=== PATIENT | male | born 1975 | race Caucasian/White ===

== ENCOUNTER 2016-12-14 22:22 | Emergency (ER) | payer BC ==
[2016-12-15] MEDS ORDERED: Diphtheria,Pertussis(Acell),Tetanus Vaccine 0.5 ML SDV IM ONE (00:14)
[2016-12-15 07:42] VITALS: BP 143/88
--- NOTE | 2016-12-18 13:14 | ER ---
DATE SEEN: 12/14/2016 TIME SEEN: The patient was seen at 2216 hours. HISTORY OF PRESENT ILLNESS: The patient presents because after 3 to 5 drinks of alcohol this evening, he fell backwards and lacerated his left scalp. He wants his scalp repaired. He fell back and hit his head on a cement floor. On more careful discussion, he had at least 9 beers this evening. 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 He had a fracture of the anterior cervical spine at C5-C6, C6-C7 level from wrestling. He has no loss of sensation in upper and lower extremities. He is oriented x3. He has a slightly distant look. He is a fair historian. He has moderate headache, and he has pain and discomfort in his occiput. He denies neck pain, paresis, or sensation changes in upper extremities. Denies irregular heartbeat, abdominal pain, chest wall discomfort, or pain in his upper and lower extremities. SOCIAL HISTORY: Nonsmoker, never smoked. He apparently rarely drinks, but he was at a green party get together this evening, and showed excessive exuberance in alcohol ingestion. He is single. MEDICATIONS: 1. Multivitamins. 2. Fish oil. 3. Flexeril p.r.n. 4. Antidepressants. 5. Citalopram 20 mg daily. IMMUNIZATIONS: He is not certain of his tetanus immunizations. REVIEW OF SYSTEMS: Negative except as noted above with previous history of neck injury while wrestling in college. PHYSICAL EXAMINATION: GENERAL: Head: Superior occipital soft tissue injury with 4-cm non-linear laceration. HEENT: TMs normal in appearance. Pharynx without abnormality. Gag is in place. Uvula midline. Tongue strength is normal. Speech appropriate. NECK: Soft collar has been placed in the neck. The neck was cleared by CT, and his neck range of motion is decreased, but there are no abnormalities noted. 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 LUNGS: Clear to auscultation without rales, rhonchi, or wheezes. HEART: S1, S2. No murmur. ABDOMEN: Soft. No guarding. No abdominal discomfort. He has increased abdominal girth. NEUROLOGICAL: He is a very muscular man. Deep tendon reflexes are normoactive in upper and lower extremities. Cranial nerves II through XII intact. Oriented x3. Gait appropriate, slightly unsteady. Romberg is negative. HOSPITAL COURSE: CT of the head, no evidence for abnormality. CT of the cervical spine, C5-C6, C6-C7 severe previous old anterior vertebral body fracture with significant osteophytic spurs, almost complete bridging of the C5- C6, C6-C7 anterior vertebral bodies. LABORATORY STUDIES: White count 10,200, PMNs 58, lymphocytes 33, monos 7, platelets 268,000, and hemoglobin 15.7, the latter is slightly elevated secondary to alcohol-induced dehydration. His complete metabolic panel is negative except for BUN trace high 21 and creatinine 0.8. Complete metabolic panel, BUN and creatinine ratio of 26 reflecting dehydration, diuresis from excessive alcohol intake. Urinalysis: Rare bacteria and urine. Drug screen is negative. Blood alcohol is 0.09. ASSESSMENT: 1. Alcohol intoxication. 2. Concussion. 3. Old C5-C6, C6-C7 vertebral anterior body spurring injury and deformities. 4. No evidence for cervical spine injury (fracture or subluxation). 5. Scalp laceration, 4 cm, occiput. PROCEDURE: The patient's scalp was prepped and cleansed in the sink with surgical scrub brush and then 8 sarah were placed. No evidence for cervical spine fracture or cranial or skull fracture. PLAN: The patient is to follow up in 5-7 days and have his sarah removed. Use bacitracin on daily basis. Gradually progressively increase activity as tolerated. New position statement of the [employer] in June 2016 relates that his activity does not need to be compromised. However, the patient has a weight restriction of lifting 25 pounds at work. /[id number] SEBASTIAN/JOSS PORTER
== END 2016-12-15 00:34 | disposition home or self-care (01) ==
LOC: FB.ED 22:22
DX: S06.0X0A Concussion without loss of consciousness, initial encounter (principal); S01.01XA Laceration without foreign body of scalp, initial encounter; W19.XXXA Unspecified fall, initial encounter; F10.129 Alcohol abuse with intoxication, unspecified; Z79.899 Other long term (current) drug therapy
CPT/HCPCS: 12002; 36415; 70450; 72125; 80053; 80305; 81001; 85025; 90471; 90715; 99283; G0480; 12001

== ENCOUNTER 2018-09-02 06:25 | Emergency (ER) | payer BC ==
[2018-09-02] MEDS ORDERED: Sodium Chloride 0.9% 1,000 ML IV ONE (07:17)
[2018-09-02] MEDS ORDERED: Ondansetron 4 MG/2 ML SDV IVPUSH ONE (07:17)
[2018-09-02] MEDS: Sodium Chloride 0.9% 10 ML Syringe FLUSH PRN ×2 (07:19→10:05)
--- NOTE | 2018-09-02 07:24 | EDM.PDOC ---
ED HPI GENERAL MEDICAL PROBLEM - General Chief Complaint: Flank Pain Stated Complaint: RT SIDE PAIN Time Seen by Provider: 09/02/18 07:14 Source of Information: Reports: Patient History Limitations: Reports: No Limitations - History of Present Illness INITIAL COMMENTS - FREE TEXT/NARRATIVE: 43-year-old male who noticed about noon yesterday that he had some right mid back aching type pain and that pain seemed to progressively worsen through the rest of the day. It was a pain that was worse with movement. About 3:30 this morning he awoke with a very sharp pain in his right upper quadrant, right flank and right mid back and it seemed to radiate from the front to the back. It was a 10/10 at this point. He did feel that felt worse with movement but he also felt that he couldn't find a comfortable position. He had no nausea or vomiting associated with this. No dysuria. No hematuria. No fevers or chills. No cough. No nasal congestion. No change in the pain with deep breath. He ate and drink normally yesterday. He presents here via private vehicle but his is at home and will come if need be to pick him up. The pain is currently a 7/ 10 at rest but with movement it goes back up to a 10/10. There are no other associated signs or symptoms. There are no other modifying factors. 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: Reports: Other (see below) (Nothing) Flank Pain Score (Numeric/FACES): 7 - Related Data Allergies Allergy/AdvReac Type Severity Reaction Status Date / Time hayfever Allergy Other Uncoded 09/02/18 07:31 Home Meds: Home Meds Citalopram [Citalopram HBr] 20 mg PO DAILY 12/14/16 [History] Cyclobenzaprine [Flexeril] 10 mg PO BEDTIME 12/14/16 [History] Cyclobenzaprine [Flexeril] 10 mg PO TID PRN #15 tab 09/02/18 [Rx] Gabapentin [Neurontin] 400 mg PO TID 09/02/18 [History] Hydrocodone/Acetaminophen [Blair 5-325 Tablet] 1 - 2 each PO Q6H PRN #20 tablet 09/02/18 [Rx] Past Medical History HEENT History: Reports: Impaired Vision Psychiatric History: Reports: Anxiety, Depression - Infectious Disease History Infectious Disease History: Reports: Chicken Pox - Past Surgical History Musculoskeletal Surgical History: Reports: Other (See Below) Other Musculoskeletal Surgeries/Procedures:: Surgery on bilateral elbows, scar tissue removal. Social & Family History - Tobacco Use Smoking Status *Q: Never Smoker - Caffeine Use Caffeine Use: Reports: Coffee - Alcohol Use Alcohol Use History: Yes Alcohol Use Frequency: Rarely - Living Situation & Occupation Living situation: Reports: (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[facility]) Occupation: Employed (He works for the [employer]) Social History Comment: He drove himself here but his will come pick him up. ED ROS GENERAL - Review of Systems Review Of Systems: See Below Constitutional: Reports: No Symptoms HEENT: Reports: No Symptoms Respiratory: Reports: No Symptoms Cardiovascular: Reports: No Symptoms Endocrine: Reports: No Symptoms GI/Abdominal: Reports: Abdominal Pain (Quadrant and right flank). Denies: Nausea, Vomiting : Reports: No Symptoms Musculoskeletal: Reports: Back Pain (Right mid back pain) Skin: Reports: No Symptoms Neurological: Reports: No Symptoms Hematologic/Lymphatic: Reports: No Symptoms Immunologic: Reports: No Symptoms ED EXAM, GI/ABD - Physical Exam Exam: See Below Exam Limited By: No Limitations General Appearance: Alert, WD/WN, Moderate Distress Eyes: Bilateral: Normal Appearance, EOMI Ears: Normal External Exam, Hearing Grossly Normal Throat/Mouth: Normal Inspection, Normal Oropharynx, Normal Voice, No Airway Compromise Head: Atraumatic, Normocephalic Neck: Normal Inspection, Supple, Non-Tender, Full Range of Motion Respiratory/Chest: No Respiratory Distress, Lungs Clear, Normal Breath Sounds, No Accessory Muscle Use, Chest Non-Tender Cardiovascular: Normal Peripheral Pulses, Regular Rate, Rhythm, No JVD GI/Abdominal Exam: Normal Bowel Sounds, Soft, No Mass, Tender (In right upper lateral quadrant) Back Exam: Normal Inspection. No: CVA Tenderness (R) Extremities: Normal Inspection, Normal Range of Motion, Non-Tender, Normal Capillary Refill, No Pedal Edema Neurological: Alert, Oriented, CN II-XII Intact, Normal Cognition, No Motor/ Sensory Deficits Skin Exam: Warm, Dry, Intact, Normal Color, No Rash EKG INTERPRETATION EKG Date: 09/02/18 Time: 06:42 Rhythm: NSR Rate (Beats/Min): 70 [place]: LAD-Left [place] Deviation P-Wave: Present QRS: Normal ST-T: Other (Poor R-wave progression) QT: Prolonged (Slightly) Comparison: NA - No Prior EKG EKG Interpretation Comments: Normal sinus rhythm with a rate of 70. There is a left axis. He has a slightly prolonged QTC and poor R-wave progression which is probably lead placement. Otherwise normal EKG. Course - Vital Signs Last Recorded V/S: Last Vital Signs Temp 36.5 C 09/02/18 10:08 Pulse 71 09/02/18 10:08 Resp 16 09/02/18 10:08 BP 157/91 H 09/02/18 10:08 Pulse Ox 96 09/02/18 10:08 - Orders/Labs/Meds Orders: Active Orders 24 hr Category Date Time Status Abdomen Ltd [US] Stat Exams 09/02/18 08:40 Taken Abdomen Pelvis wo Cont [CT] Stat Exams 09/02/18 08:37 Taken Sodium Chloride 0.9% [Saline Flush] Med 09/02/18 07:14 Active 10 ml FLUSH ASDIRECTED PRN Peripheral IV Insertion Adult [OM.PC] Routine Oth 09/02/18 07:14 Ordered EKG 12 Lead [EK] Routine Ther 09/02/18 06:42 Ordered Medication Orders Sodium Chloride (Saline Flush) 10 ml FLUSH ASDIRECTED PRN PRN Reason: Keep Vein Open Last Admin: 09/02/18 10:05 Dose: 10 ml Admin: 09/02/18 07:19 Dose: 10 ml Labs: Laboratory Tests 09/02/18 09/02/18 09/02/18 Range/Units 07:30 07:30 07:30 WBC 6.2 (4.5-12.0) X10-3/uL RBC 5.27 (4.30-5.75) x10(6)uL Hgb 15.4 (13.5-17.8) g/dL Hct 44.8 (30.0-51.3) % MCV 84.9 (80-96) fL MCH 29.2 (27.7-33.6) pg MCHC 34.4 (32.2-35.4) g/dL RDW 12.2 (11.5-15.5) % Plt Count 207 (125-369) X10(3)uL MPV 8.4 (7.4-10.4) fL Neut % (Auto) 65.5 (46-82) % Lymph % (Auto) 23.5 (13-37) % Adams % (Auto) 6.8 (4-12) % Eos % (Auto) 4 (1.0-5.0) % Baso % (Auto) 1 (0-2) % Neut # (Auto) 4.1 (1.6-8.3) # Lymph # (Auto) 1.5 (0.6-5.0) # Adams # (Auto) 0.4 (0.0-1.3) # Eos # (Auto) 0.2 (0.0-0.8) # Baso # (Auto) 0.0 (0.0-0.2) # Sodium 141 (135-145) mmol/L Potassium 4.5 (3.5-5.3) mmol/L Chloride 104 (100-110) mmol/L Carbon Dioxide 26 (21-32) mmol/L BUN 21 H (7-18) mg/dL Creatinine 0.9 (0.70-1.30) mg/dL Est Cr Clr Drug Dosing 118.37 mL/min Estimated GFR (MDRD) > 60 (>60) BUN/Creatinine Ratio 23.3 H (9-20) Glucose 105 (80-116) mg/dL Calcium 8.9 (8.6-10.2) mg/dL Total Bilirubin 0.6 (0.1-1.3) mg/dL AST 30 H (5-25) IU/L ALT 50 H (12-36) U/L Alkaline Phosphatase 56 (56-112) IU/L Troponin I < 0.017 L (<0.017-0.056) ng/mL Total Protein 6.9 (6.0-8.0) g/dL Albumin 3.9 (3.5-5.2) g/dL Globulin 3.0 g/dL Albumin/Globulin Ratio 1.3 Amylase 56 (25-115) U/L Urine Color (YELLOW) Urine Appearance (CLEAR) Urine pH (5.0-6.5) Ur Specific [place] (1.010-1.025) Urine Protein (NEGATIVE) mg/dL Urine Glucose (UA) (NORMAL) mg/dL Urine Ketones (NEGATIVE) mg/dL Urine Occult Blood (NEGATIVE) Urine Nitrite (NEGATIVE) Urine Bilirubin (NEGATIVE) Urine Urobilinogen (NEGATIVE) mg/dL Ur Leukocyte Esterase (NEGATIVE) Urine RBC (0-5) Urine WBC (0-5) Ur Squamous Epith Cells (NS,R,O) Urine Bacteria (NS) 09/02/18 Range/Units 08:19 WBC (4.5-12.0) X10-3/uL RBC (4.30-5.75) x10(6)uL Hgb (13.5-17.8) g/dL Hct (30.0-51.3) % MCV (80-96) fL MCH (27.7-33.6) pg MCHC (32.2-35.4) g/dL RDW (11.5-15.5) % Plt Count (125-369) X10(3)uL MPV (7.4-10.4) fL Neut % (Auto) (46-82) % Lymph % (Auto) (13-37) % [place] % (Auto) (4-12) % Eos % (Auto) (1.0-5.0) % Baso % (Auto) (0-2) % Neut # (Auto) (1.6-8.3) # Lymph # (Auto) (0.6-5.0) # Adams # (Auto) (0.0-1.3) # Eos # (Auto) (0.0-0.8) # Baso # (Auto) (0.0-0.2) # Sodium (135-145) mmol/L Potassium (3.5-5.3) mmol/L Chloride (100-110) mmol/L Carbon Dioxide (21-32) mmol/L BUN (7-18) mg/dL Creatinine (0.70-1.30) mg/dL Est Cr Clr Drug Dosing mL/min Estimated GFR (MDRD) (>60) BUN/Creatinine Ratio (9-20) Glucose (80-116) mg/dL Calcium (8.6-10.2) mg/dL Total Bilirubin (0.1-1.3) mg/dL AST (5-25) IU/L ALT (12-36) U/L Alkaline Phosphatase (56-112) IU/L Troponin I (<0.017-0.056) ng/mL Total Protein (6.0-8.0) g/dL Albumin (3.5-5.2) g/dL Globulin g/dL Albumin/Globulin Ratio Amylase (25-115) U/L Urine Color Yellow (YELLOW) Urine Appearance Clear (CLEAR) Urine pH 5.0 (5.0-6.5) Ur Specific [place] 1.025 (1.010-1.025) Urine Protein Negative (NEGATIVE) mg/dL Urine Glucose (UA) Normal (NORMAL) mg/dL Urine Ketones Negative (NEGATIVE) mg/dL Urine Occult Blood Negative (NEGATIVE) Urine Nitrite Negative (NEGATIVE) Urine Bilirubin Negative (NEGATIVE) Urine Urobilinogen Normal (NEGATIVE) mg/dL Ur Leukocyte Esterase Negative (NEGATIVE) Urine RBC 0-5 (0-5) Urine WBC 0-5 (0-5) Ur Squamous Epith Cells Occasional (NS,R,O) Urine Bacteria Occasional H (NS) Meds: Medications Generic Name Dose Route Start Last Admin Trade Name Roxann PRN Reason Stop Dose Admin Sodium Chloride 10 ml 09/02/18 07:14 09/02/18 10:05 Saline Flush FLUSH 10 ml ASDIRECTED PRN Administration Keep Vein Open Discontinued Medications Generic Name Dose Route Start Last Admin Trade Name Roxann PRN Reason Stop Dose Admin Hydromorphone HCl 1 mg 09/02/18 07:17 09/02/18 10:03 Dilaudid IVPUSH 1 mg Q5M PRN Administration Pain Sodium Chloride 1,000 mls @ 999 mls/hr 09/02/18 07:17 09/02/18 07:24 Normal Saline IV 09/02/18 08:17 999 mls/hr .BOLUS ONE Administration Ondansetron HCl 4 mg 09/02/18 07:17 09/02/18 07:27 Zofran IVPUSH 09/02/18 07:18 4 mg ONETIME ONE Administration - Radiology Interpretation Free Text/Narrative:: Right upper quadrant ultrasound showed no evidence of gallstones or any other acute abnormality per the radiologist CT scan of the abdomen and pelvis without IV contrast showed no acute abnormality per the radiologist. - Re-Assessments/Exams Free Text/Narrative Re-Assessment/Exam: 09/02/18 08:40: [facility] showed no acute abnormality. The patient had received Dilaudid 1 mg and his pain was down to a 5-6/10 but he did not want anything else this time. I ordered a CT scan of his abdomen and pelvis without IV contrast to rule out ureteral stone. 09/02/18 10:15: Patient's CT scan showed no acute abnormality. He has had 2 doses of the Dilaudid now with a good reduction in his pain. He appears comfortable. His blood pressure has been elevated throughout his emergency department stay. His laboratory tests are normal. The pain appears to be musculoskeletal in nature and potentially a problem in his back with muscle strain/spasm or possibly even a radiculopathy. I will give him 5 days off work and he will need to follow-up with primary doctor within that 5 days to have his blood pressure rechecked and also if he needs any further duty status. Departure - Departure Time of Disposition: 10:23 Disposition: Home, Self-Care 01 Condition: Good Clinical Impression: Mid back pain on right side, Acute right flank pain, Muscle spasm - Discharge Information Prescriptions: Cyclobenzaprine [Flexeril] 10 mg PO TID PRN #15 tab PRN Reason: Muscle spasm or pain Hydrocodone/Acetaminophen [Blair 5-325 Tablet] 1 - 2 each PO Q6H PRN #20 tablet PRN Reason: Moderate to severe pain Instructions: Back Exercises, Flank Pain, Adult, Back Injury Prevention Referrals: Nasreen Zhang NP [Primary Care Provider] - Forms: ED Department Discharge Additional Instructions: Your blood tests and urine test were reassuringly normal. The ultrasound of your gallbladder showed no problems. The CT scan of your abdomen and pelvis showed no evidence of kidney stone or any other problem. This appears to be due to either the muscles in your back and right flank or it could be a problem with a disc in your back as well. I have given you a note for no work for the next 5 days. You should avoid lifting, bending, pushing and pulling greater than 10 pounds for this period of time as well. You will need to follow-up with your primary doctor for any further duty status. Your blood pressure was also elevated while you were in the emergency department. You need to see your primary doctor in regard to this elevated blood pressure as well. You may take ibuprofen 800 mg by mouth every 8 hours as needed for pain. Medication as prescribed (hydrocodone 5/325, Flexeril 10 mg). You should begin doing back stretching exercises starting tomorrow. Start slowly. Back to the emergency department for fever, worsening abdominal pain, unrelenting vomiting or any other concerning sign or symptom. - My Orders Last 24 Hours: My Active Orders 09/02/18 07:14 Sodium Chloride 0.9% [Saline Flush] 10 ml FLUSH ASDIRECTED PRN Peripheral IV Insertion Adult [OM.PC] Routine 09/02/18 08:37 Abdomen Pelvis wo Cont [CT] Stat 09/02/18 08:40 Abdomen Ltd [US] Stat - Assessment/Plan Last 24 Hours: My Active Orders 09/02/18 07:14 Sodium Chloride 0.9% [Saline Flush] 10 ml FLUSH ASDIRECTED PRN Peripheral IV Insertion Adult [OM.PC] Routine 09/02/18 08:37 Abdomen Pelvis wo Cont [CT] Stat 09/02/18 08:40 Abdomen Ltd [US] Stat
[2018-09-02] MEDS: HYDROmorphone 2 MG/ML SDV IVPUSH PRN ×2 (07:30→10:03)
[2018-09-02 10:09] VITALS: BP 157/91
== END 2018-09-02 10:38 | disposition home or self-care (01) ==
LOC: FB.ED 06:25
DX: M54.6 Pain in thoracic spine (principal); R10.11 Right upper quadrant pain; M62.830 Muscle spasm of back; R03.0 Elevated blood-pressure reading, without diagnosis of hypertension; F41.9 Anxiety disorder, unspecified; F32.9 Major depressive disorder, single episode, unspecified; Z79.899 Other long term (current) drug therapy
CPT/HCPCS: 36415; 74176; 76705; 80053; 81001; 82150; 84484; 85025; 93005; 96361; 96374; 96375; 96376; 99284; J1170; J2405; J7030

== ENCOUNTER 2020-03-10 16:28 | Emergency (ER) | payer BC, OTHER ==
[2020-03-10] MEDS ORDERED: Lidocaine 2% 20 ML MDV INFILT ONE (16:29)
[2020-03-10 16:47] VITALS: BP 154/95; PULSE 87
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
== END 2020-03-10 17:45 | disposition home or self-care (01) ==
LOC: FB.ED 16:28
DX: S01.81XA Laceration without foreign body of other part of head, initial encounter (principal); F41.9 Anxiety disorder, unspecified; F32.9 Major depressive disorder, single episode, unspecified; Z79.899 Other long term (current) drug therapy; W22.8XXA Striking against or struck by other objects, initial encounter
CPT/HCPCS: 12013; 99282; J2001

== ENCOUNTER 2023-03-30 21:14 | Emergency (ER) | payer OTHER ==
[2023-03-30] MEDS ORDERED: Acetaminophen/HYDROcodone 325-5 MG Tab PO ONE (21:15)
[2023-03-30 21:39] VITALS: BP 149/84; PULSE 85
== END 2023-03-30 21:50 | disposition home or self-care (01) ==
LOC: FB.ED 21:14
DX: M62.830 Muscle spasm of back (principal); I10 Essential (primary) hypertension; Z79.899 Other long term (current) drug therapy; Z91.048 Other nonmedicinal substance allergy status
CPT/HCPCS: 99283; A9270-GY